=== PATIENT | male | born 1930 | race Caucasian/White ===

== ENCOUNTER 2020-06-06 16:48 | Emergency (ER) | payer MEDICARE, OTHER ==
[~2020-06-06] VITALS: Ht 170.2 cm; Wt 90.7 kg
[~2020-06-06 16:48] MED LIST: ASPIRIN325 M2; IRON; Z.0.COZAAR25 MG; Z.0.LEXAPRO10 MG; Z.0.LIPITOR20 MG; [UNRECOGNIZED DRUG - OTHER]
[2020-06-06 17:16] LABS: BASOPHILS % 0.6 % (0.0-1.0); EOSINOPHILS # (AUTO) 0.1 (0.0-0.4); EOSINOPHILS % 1.6 % (0.0-6.0); HEMATOCRIT 33.9 % (38.2-49.6); HEMOGLOBIN 11.3 g/dL (14.0-18.0); LYMPHOCYTES # (AUTO) 1.2 (1.0-3.2); LYMPHOCYTES % 24.4 % (18.0-39.1); MEAN CORPUSCULAR HEMOGLOBIN 33.2 pg (28-32); MEAN CORPUSCULAR HGB CONC 33.3 g/dL (31-35); MEAN CORPUSCULAR VOLUME 99.7 fL (81-99); MONOCYTES # (AUTO) 0.8 (0.2-0.8); MONOCYTES % 15.3 % (4.4-11.3); NEUTROPHILS # (AUTO) 2.9 (2.1-6.9); NEUTROPHILS % 57.9 % (38.7-80.0); PLATELET COUNT 145 x10e3/uL (140-360); RED CELL DISTRIBUTION WIDTH 12.9 % (11.7-14.4)
--- OUTSIDE RECORDS SUMMARY | 2020-06-06 17:22 | XMS REPORT | Clinical Summary ---
Author Author [id number] [id number] Address Unknown Phone Unavailable Care Team Providers Care Stoner Hand Name Role Phone Sergo Vidales MD PCP Unavailable Allergies Comments Active Allergy Reactions Severity Noted Date blisters Adhesive Other (See 08/18/2015 Comments) Sulfa (Sulfonamide Nausea Only 06/11/2008 Antibiotics) Stomach upset Bupropion Hcl Nausea Only, Low 12/26/2008 Other (See Comments) Medications End Date Status Medication Sig Dispensed Refills Start Date Active atorvastatin (LIPITOR) 10 Take 10 mg by 0 MG tablet mouth nightly. Active acyclovir (ZOVIRAX) 400 Take 400 mg 0 MG tablet by mouth 2 (two) times daily. Active escitalopram (LEXAPRO) 10 Take 10 mg by 0 MG tablet mouth daily. Active losartan (COZAAR) 100 MG Take 100 mg 0 tablet by mouth daily . Active omeprazole (PRILOSEC) 20 Take 20 mg by 0 MG capsule mouth daily. Active fluticasone (FLONASE) 50 2 sprays by 0 mcg/actuation nasal spray Nasal route daily. Active multivitamin Take 1 tablet 0 (MULTIVITAMIN) per tablet by mouth daily. Active prednisoLONE acetate Place 1 drop 0 (PRED FORTE) 1 % into the ophthalmic suspension right eye 2 (two) times daily. Active dorzolamide-timolol, PF, Apply 1 drop 0 2-0.5 % Dpet to eye(s) 2 (two) times daily. Active potassium chloride Take 10 mEq 0 (KLOR-CON) 10 MEQ CR by mouth tablet daily. Active furosemide (LASIX) 20 MG Take 20 mg by 0 tablet mouth 2 (two) times daily. Active warfarin (COUMADIN, Take 2 30 tablet 0 JANTOVEN) 2.5 MG tablet tablets (5 mg 0 total) by mouth daily Take 5 mg on and 2.5 mg on , , , [place].. 02/19/2020 Discontinued bromfenac (PROLENSA) 0.07 Apply 1 drop 0 % Drop to eye(s) 2 (two) times daily . 02/20/2020 Discontinued warfarin (COUMADIN) 2.5 Take 5 mg by 0 MG tablet mouth daily Take 5 mg on and 2.5 mg on , , , [place].. 02/19/[address] 1 drop 5 mL 0 01 (CILOXAN) 0.3 % into the 5 ophthalmic solution right eye 4 (four) times daily.. 02/19/2020 Discontinued homatropine (ISOPTO) 5 % Place 1 drop 15 mL 0 ophthalmic solution into the 5 right eye 4 (four) times daily. 02/19/2020 Discontinued cloNIDine HCl (CATAPRES) Take 1 tablet 15 tablet 0 0.2 MG tablet (0.2 mg 7 total) by mouth 3 (three) times daily as needed (TAKE IF SYSTOLIC>180 OR IF DIASTOLIC>100 ) for up to 15 doses. 02/25/2020 mINOCYCLine Take 1 10 capsule 0 (MINOCIN,DYNACIN) 100 MG capsule (100 0 capsule mg total) by mouth every 12 (twelve) hours for 5 days. Status Hospital, Clinic, or Ordered Dose Route Frequency Start End Date Other Facility Date Administered Medication Active chlorhexidine (HIBICLENS) Top Daily as needed external liquid 4% 20 Active Problems Problem Noted Date Symptomatic bradycardia 02/19/2020 S/P placement of cardiac pacemaker single chamber MDT MRI conditional, Left 02/19/2020 02/19/2020 Restless legs syndrome (RLS) 02/19/2020 Dizziness 02/06/2020 Major depressive disorder, single episode, moderate 11/08/2019 Pulmonary hypertension 06/01/2019 Gastroesophageal reflux disease with esophagitis Hypercholesterolemia 10/29/2016 Persistent atrial fibrillation 10/29/2016 SSS (sick sinus syndrome) 10/29/2016 TGA (transient global amnesia) 08/18/2016 Primary open angle glaucoma of both eyes, severe stag e 08/06/2016 Allergic rhinitis, unspecified 11/12/2015 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 03/10/2012 Overview: Overview: ICD-10 Neuritis or radiculitis due to displacement of lumbar intervertebral disc 09/30/2010 Lumbar spondylosis 08/31/2010 CAD (coronary artery disease) 07/24/2010 ELLEN (obstructive sleep apnea) 09/13/2008 Benign essential hypertension 06/11/2008 DDD (degenerative disc disease), cervical 06/11/2008 Encounters Care Team Description Date Type Specialty Venessa Garrison MD PACEMAKER GEN & LEADS - INSERTION W/ GEN ERAL ANESTHESIA (SING/DUAL/MULT) 02/19/2020 Surgery Yarelis Porter MD 02/19/2020 Anesthesia Event Venessa Garrison MD 02/19/2020 Hospital - Encounter 02/20/2020 Sergo Vidales MD Varghese, Jeeva S RN Pre-op exam (Primary Dx) 02/14/2020 Office Visit Cardiology 02/14/2020 Travel Jonny Serna MD Fall, initial encounter (Primary Dx); Injury of head, initial encounter 09/28/2019 Emergency Emergency Medicine 09/28/2019 Travel after 06/06/2019 Social History Date Tobacco Use Types Packs/Day Years Used Never Smoker Smokeless Tobacco: Never Used Alcohol Use Drinks/Week oz/Week Comments No 0.0 occasional wine Sex Assigned at Date Recorded Not on file Industry Job Start Date Occupation Not on file Not on file Not on file Travel End Travel History Travel Start No recent travel history available. Last Filed Vital Signs Time Taken Vital Sign Reading 02/20/2020 7:27 AM CDT Blood Pressure 121/70 02/20/2020 7:27 AM CDT Pulse 60 02/20/2020 7:27 AM CDT Temperature 36.8 C (98.2 F) 02/20/2020 7:27 AM CDT Respiratory Rate 18 02/20/2020 7:27 AM CDT Oxygen Saturation 94% - Inhaled Oxygen - Concentration 02/20/2020 9:54 AM CDT Weight 77.9 kg (171 lb 12.8 oz) 02/19/2020 6:02 AM CDT Height 167.6 cm (5' 6") 02/20/2020 9:54 AM CDT Body Mass Index 27.73 Plan of Treatment Health Maintenance Due Date Last Done Comments MEDICARE ANNUAL WELLNESS 10/18/1996 (YEAR 2 or FIRST YEAR if no IPPE) INFLUENZA VACCINE (#1) 2020 07/09/2019, , 07/05/2017, Additional history exists PNEUMOCOCCAL 65+ Completed 11/26/2014, 008 LOW/MEDIUM RISK Implants Device Identifier Shelf Expiration Date Model / Serial / L ot Implanted Type Area Manufactur er 04/15/2016 [id number] / / [id number] Sealant,Floseal Hemostatic Matrix Cement/Migel N/A: Spine AVENDAÑO 10ml - [id number] ler/Adhesi Lumbar BIOSCIENCE Implanted: Qty: 1 on 02/10/2015 by ve FOR Rehan Hernandez MD [facility] 01/27/2018 [id number] / / [id number] AlejandrinaLabtician Retinal #240 - Ophthalmol Right: Eye SENEGALESE [id number] ogy OPHTHALMIC Implanted: Qty: 1 on 09/28/2013 by Rock Narayanan MD 06/29/2014 [id number] / / [id number] Vial,Silicone Oil 10cc Siloil - Ophthalmol Right: Eye BAUSC [id number] ogy Implanted: Qty: 1 on 09/28/2013 by Rock Narayanan MD [id number] 12/05/2021 [id number] / [id number] / Lead Pacemkr Capsur Novus 52x1 PACEMAKER/ N/A: Heart [employer]: [id number] - [id number] ICD CARD Implanted: Qty: 1 on 02/19/2020 by CHAMBER RHY :Venessa Slaughter MD DEVICE E MGT [id number] 11/30/2020 [id number] / [id number] / Pacemaker Ipg [id number] [place] Sr PACEMAKER/ Left: Chest [employer]: [id number] - [id number] ICD CARD Implanted: Qty: 1 on 02/19/2020 by CHAMBER RHY :Venessa Slaughter MD DEVICE E MGT Procedures Comments Procedure Name Priority Date/Time Associated Diag nosis REPORT OF PROCEDURE - 02/22/2020 ENDOSCOPY SCAN 11:00 AM CDT CARDIAC CATH REPORT - 02/22/2020 SCAN 11:00 AM CDT ARRYTHMIA IMPLANT REPORT 02/22/2020 - SCAN 11:00 AM CDT RHYTHM STRIP - SCAN 02/22/2020 11:00 AM CDT ARRYTHMIA IMPLANT REPORT 02/20/2020 - SCAN 12:51 PM CDT BUN AND CREATININE Routine 02/20/2020 W/RATIO 4:00 AM CDT HEMOGLOBIN AND HEMATOCRIT Routine 02/20/2020 4:00 AM CDT XR CHEST 1 VIEW Routine 02/20/2020 PORTABLE/BEDSIDE 3:47 AM CDT XR CHEST 1 VIEW STAT 02/19/2020 PORTABLE/BEDSIDE 11:51 AM CDT PACEMAKER GEN & LEADS - 02/19/2020 Atrial fibril lation, INSERTION W/ GENERAL 7:35 AM CDT unspecified type (HCC) ANESTHESIA Symptomatic bradycardia (SING/DUAL/MULT) Case Notes (1)SAXY0FY P / [employer] Special Needs No anesthesia PROTHROMBIN TIME/INR Routine 02/19/2020 6:36 AM CDT PROTHROMBIN TIME/INR Routine 02/14/2020 12:08 PM CDT SARS-COV2/RT-PCR ([facility] & Routine 02/14/2020 REF LABS) 12:[address] BRAIN WITHOUT IV STAT 09/28/2019 CONTRAST 4:40 PM [employer] 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 * CARDIAC CATH REPORT - SCAN (02/22/2020 11:00 AM CDT) Narrative Performed At This result has an attachment that is n ot available. * ARRYTHMIA IMPLANT REPORT - SCAN (02/22/2020 11:00 AM CDT) Only the most recent of 2 results within the time period is included. Narrative Performed At This result has an attachment that is n ot available. * RHYTHM STRIP - SCAN (02/22/2020 11:00 AM CDT) Narrative Performed At This result has an attachment that is n ot available. * BUN and Creatinine (02/20/2020 4:00 AM CDT) BUN 17 7 - 21 mg/dL [facility] Creatinine 0.72 0.57 - 1.25 mg/dL [facility] BUN/Creatinine Ratio 23.6111Comment: For a normal [facility] individual on a normal diet, [facility] the reference interval for the mass ratio ranges between 12:1 and 20:1 (BUN in mg/dL/creatinine in mg/dL) EGFR 103Comment: ESTIMATED GFR IS mL/min/1.73 sq m [facility] NOT ACCURATE CREATININE [facility] CLEARANCE IN PREDICTING GLOMERULAR FILTRATION RATE. ESTIMATED GFR IS NOT APPLICABLE FOR DIALYSIS PATIENTS. Specimen Blood Narrative Performed At Web Sizer ID - SINDI M [facility] Specimen slightly icteric [facility] Performing Organization Address [facility] Ph one Number [place] [phone] [place] [address] * Hemoglobin and hematocrit (02/20/2020 4:00 AM CDT) Hemoglobin 12.8 (L) 13.7 - 17.5 GM/DL [facility] Hematocrit 37.5 (L) 40.1 - 51.0 % [facility] Specimen Blood Narrative Performed At Web Sizer ID - [id number] [facility] Performing Organization Address [facility] Ph one Number [address] [facility] * XR chest 1 view portable / bedside (02/20/2020 3:47 AM CDT) Only the most recent of 2 results within the time period is included. Specimen Narrative Performed At FINAL REPORT GE RIS RAD, CHEST, 1 VIEW, NON DEPT INDICATION: s/p PPM; rule out PTX COMPARISON: Prior day's exam FINDINGS: Portable frontal view of the chest. IMPRESSION: Support Lines: Stable. Lungs and pleura: Unchanged airspace an d pleural opacities. No pneumothorax. Heart and mediastinum: Stable contours. Stable surgical changes. Additional findings: None. Signed: Ronan Ramirez MD Report Verified Date/Time: 0 04:03:01 Procedure Note Interface, External Ris In - 02/20/2020 4:05 AM CDT FINAL REPORT RAD, CHEST, 1 VIEW, NON DEPT INDICATION: s/p PPM; rule out PTX COMPARISON: Prior day's exam FINDINGS: Portable frontal view of the chest. IMPRESSION: Support Lines: Stable. Lungs and pleura: Unchanged airspace and pleural opacities. No pneumothorax. Heart and mediastinum: Stable contours. Stable surgical changes. Additional findings: None. Signed: Ronan Ramirez MD Report Verified Date/Time: 02/20/2020 04:03:01 Performing Organization Address City/State/Zipcode Ph one Number RIS * Prothrombin time/INR (02/19/2020 6:36 AM CDT) Only the most recent of 2 results within the time period is included. Protime 16.3 (H) 11.9 - 14.2 seconds [facility] INR 1.4 <=5.9 [facility] Specimen Blood Narrative Performed At Effective 03/14/2019: PT Reference Range Change [facility] New: 11.9-14.2Previous: 11.7-14.7 [facility] NTER RECOMMENDED COUMADIN/WARFARIN INR THERA PY RANGES STANDARD DOSE: 2.0-3.0Includes: PRO PHYLAXIS for venous thrombosis, systemic embolization; TREATMENT for venous thro mbosis and/or pulmonary embolus. HIGH RISK: Target INR is 2.5-3.5 for pa tients wiht mechanical heart valves. Page Imelda for INR of 1.5 or greater7 [phone] Performing Organization Address City/State/Zipcode Ph one Number [place] [address] [facility] * SARS-CoV2/RT-PCR ([facility]) (02/14/2020 12:04 PM CDT) SARS-COV2/RT-PCR Negative Not Detected, Negative SLE NON-INTERFACED REFERENCE LABS SARS-COV-2 PERFORMING LAB CPL SLE NON-INT ERFACED REFERENCE LABS Specimen Other Performing Organization Address City/State/[facility] Ph one Number [facility] NON-INTERFACED REFERENCE LABS * CT brain without IV contrast (09/28/2019 4:40 PM [employer]ETE IRONWORKER) Specimen Narrative Performed At FINAL REPORT [employer] [facility] CT, BRAIN, WITHOUT CONTRAST INDICATION: Head trauma, minor, normal mental status (Age 19-64y) FALL TECHNIQUE: Noncontrast axial imaging wa s obtained from the vertex to the skull base. Axial images were recon structed using a bone algorithm. DOSE REDUCTION: Dose modulation, iterat bashir reconstruction, and/or weight-based adjustment of the mA/kV wa s utilized to reduce the radiation dose to as low as reasonably achievable. COMPARISON: CT 06/26/2017 FINDINGS: Intracranial: Generalized cerebral atro phy with ex vacuo dilatation of the ventricular system proportionate to sulci. Scattered foci of hypoattenuation within the periventricu lar and subcortical white matter are a nonspecific finding common ly attributed to chronic small vessel ischemic disease. No intracrania l hemorrhage or abnormal extra-axial collection. No evidence of acute territorial infarct. No mass effect. No hydrocephalus. Osseous structures: No fracture. No omari picious lesion. Paranasal sinuses and mastoid air cells : No evidence of sinusitis. Trace left mastoid effusion. Orbital contents: Globes are intact. IMPRESSION: No acute intracranial hemorrhage. If there is persistent clinical concern for intracranial pathology, MR examination is recommended for [facility] er characterization. Signed: Nakia Trinh MD Report Verified Date/Time: 9 17:01:52 Procedure Note Interface, External Ris In - 09/28/2019 5:04 PM [employer]E [employer]ONWORKER FINAL REPORT CT, BRAIN, WITHOUT CONTRAST INDICATION: Head trauma, minor, normal mental status (Age 19-64y) FALL TECHNIQUE: Noncontrast axial imaging was obtained from the vertex to the skull base. Axial images were reconstructed using a bone algorithm. DOSE REDUCTION: Dose modulation, iterative reconstruction, and/or weight-based adjustment of the mA/kV was utilized to reduce the radiation dose to as low as reasonably achievable. COMPARISON: CT 06/26/2017 FINDINGS: Intracranial: Generalized cerebral atrophy with ex vacuo dilatation of the ventricular system proportionate to sulci. Scattered foci of hypoattenuation within the periventricular and subcortical white matter are a nonspecific finding commonly attributed to chronic small vessel ischemic disease. No intracranial hemorrhage or abnormal extra-axial collection. No evidence of acute territorial infarct. No mass effect. No hydrocephalus. Osseous structures: No fracture. No suspicious lesion. Paranasal sinuses and mastoid air cells: No evidence of sinusitis. Trace left mastoid effusion. Orbital contents: Globes are intact. IMPRESSION: No acute intracranial hemorrhage. If there is persistent clinical concern for intracranial pathology, MR examination is recommended for further characterization. Signed: Nakia Trinh MD Report Verified Date/Time: 09/28/2019 17:01:52 Performing Organization Address City/State/Zipcode Ph one Number [place] [facility] after 06/06/2019 Insurance Payer Benefit Subscriber ID Type Phone Address Plan / Group K[employer]SEYCARE KELSEYCARE xxxxxxxxxxx MEDICARE ADV OTHER-COMMERCIAL GENERIC xxxxxxxxxxxx COMMERCIAL CDC REVIEW CDC REVIEW xxxxx[place] [address] [place] [phone] Advance Directives For more information, please contact: [facility] [address] [place] [address] Date Inactivated Comments Code Status Date Activated 02/20/2020 1:42 PM Full Code 02/19/2020 6:13 AM This code status was determined by: Patient 02/11/2015 12:21 PM Full Code 02/10/2015 7:12 PM This code status was determined by: Patient 02/10/2015 7:12 PM Full Code 02/10/2015 6:42 AM This code status was determined by: Patient 12/25/2014 1:43 PM Full Code 12/24/2014 3:46 PM This code status was determined by: Patient
--- OUTSIDE RECORDS SUMMARY | 2020-06-06 17:22 | XMS REPORT | Continuity of Care Document ---
Author Author [facility] t Organization [facility] Address [address] [place] [address] Phone Unavailable Care Team Providers Care Vocational Case Manager Name Role Phone Sobeida GAMBOA, Lawrence Trotter PCP Unavailable Meli GAMBOA, Venessa Attphys German GAMBOA, Anthony Santoyo Attphys VENESSA MOLINA Attphys Unavailable LAWRENCE VIDALES Attphys Unavailable Lawrence Vidales MD Attphys [phone] Abdoulaye EAST, S Royal Attphys Unavailable Daphne GAMBOA, Evangelist Fuller Attphys Tina PRICE Attphys Unavailable VENESSA MOLINA Admphys Unavailable Payers Payer Name Policy Type Policy Number Effective Date Expiration Date S doreen KELSEYCAREKELSEYCARE MEDICARE ADVxxxxxxxxxxx xxxxxxxxxxx [facility] OTHER-COMMERCIALGENERIC COMMERCIALxxxxxxxxxxxx xxxxxxxxxxx x [facility] CDC REVIEWCDC REVIEWxxxxxxxx[place] [address] x xxxxxxx [facility] Problems Condition Name Condition Details Condition Category Status Onset Date Resolution Date Last Treatment Date Treating Clinician Comments Source Symptomatic bradycardia Symptomatic bradycardia Disease Active 2020-02-19 00:00:[address] [facility] S/P placement of cardiac pacemaker singl e chamber MDT MRI conditional, Left 02/19/2020 S/P placement of cardiac pacemaker singl e chamber MDT MRI conditional, Left 02/19/2020 Disease Active 2020-02-19 00:00:[address] [facility] Restless legs syndrome (RLS) Restless legs syndrome (RLS) Disease Active 2020-02-19 00:00:00 [facility] Dizziness Dizziness Disease Active 2020-02-06 00:00:[address] [facility] Major depressive disorder, single episode, moderate [place] allison depressive disorder, single episode, moderate Disease Active 2019-11-08 00:00:[address] [facility] Pulmonary hypertension Pulmonary hypertension Disease Active 2019-06-01 00:00:[address] [facility] Gastroesophageal reflux disease with esophagitis Gastr oesophageal reflux disease with esophagitis Disease Active 2016-10-29 00:00:[address] [facility] Hypercholesterolemia Hypercholesterolemia Disease Active 00:00:00 [facility] Persistent atrial fibrillation Persistent atrial fibrillation Disea se Active 2016-10-29 00:00:00 [facility] SSS (sick sinus syndrome) SSS (sick sinus syndrome) Disease Ac tive 2016-10-29 00:00:[address] [facility] TGA (transient global amnesia) TGA (transient global amnesia) Disea se Active 2016-08-18 00:00:00 [facility] Primary open angle glaucoma of both eyes, severe stage Primary open angle glaucoma of both eyes, severe stage Disease Active 2016-08-06 00:00:[address] 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 Spinal stenosis, lumbar region, with neurogenic claudi cation Spinal stenosis, lumbar region, with neurogenic claudication Disease [facility] 2014 [facility] [place] Post-operative state Post-operative state Disease Active 00:00:00 [facility] Hematuria Hematuria Disease Active 2014-12-24 00:00:[address] [facility] Renal mass, right Renal mass, right Disease Active 2014-12-03 00:00:[address] 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 Glaucoma filtering bleb, right eye Glaucoma filtering bleb, righ t eye Disease Active 2013-03-02 00:00:00 Overview: Overvi ew: Dr. Brito [facility] Corneal dellen Corneal dellen Disease Active 2013-02-16 00:00:[address] [facility] Pseudophakia of both eyes Pseudophakia of both eyes Disease Ac tive 2012-10-20 00:00:[address] 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 Neuritis or radiculitis due to displacement of lumbar intervertebral disc Neuritis or radiculitis due to displacement of lumbar intervertebral disc Disease Active 2010-09-30 00:00:[address] [facility] Lumbar spondylosis Lumbar spondylosis Disease Active 2010-08-31 00:00:[address] [facility] CAD (coronary artery disease) CAD (coronary artery disease) Disease Active 2010-07-24 00:00:00 [facility] ELLEN (obstructive sleep apnea) ELLEN (obstructive sleep apnea) Disease Active 2008-09-13 00:00:00 [facility] Benign essential hypertension Benign essential hypertension Disease Active 2008-06-11 00:00:00 [facility] DDD (degenerative disc disease), cervical DDD (degener ative disc disease), cervical Disease Active 2008-06-11 00:00:[address] [facility] Allergies, Adverse Reactions, Alerts Allergy Name Allergy Type Status Severity Reaction(s) Onset Date Inacti ve Date Treating Clinician Comments Source Adhesive Drug Allergy Active Other (See Comments) 2015-08-18 00 :00:[address] [facility] Bupropion Hcl Propensity to adverse reactions Active Nausea Only, Other (See Comments) 2008-12-26 00:00:00 Stomach upset [facility] Sulfa (Sulfonamide Antibiotics) Propensity to adverse reactions Act bashir Nausea Only 2008-06-11 00:00:00 [facility] Social History Social Habit Start Date Stop Date Quantity Comments Source Sex Assigned At [facility] Alcohol Comment 2014-12-18 00:00:00 2014-12-18 00:00:00 occasional wi ne [facility] Smoking Status Start Date Stop Date Source Never smoker [facility] Medications Ordered Medication Name Filled Medication Name Start Date Stop Da te Current Medication? Ordering Clinician Indication Dosage Frequency Signature (SIG) Comments Components Source warfarin (COUMADIN, JANTOVEN) 2.5 MG tablet 2020-02-21 00:00:00 Yes 5mg QD Take 2 tablets (5 mg total) by mouth edelmira ly Take 5 mg on -- and 2.5 mg on , , Sa, [place].. [facility] warfarin (COUMADIN) 2.5 MG tablet 2020-02-20 10:37:29 2019 00:00:00 No 5mg QD Take 5 mg by kiana th daily Take 5 mg on -W- and 2.5 mg on , , Sa, [place].. [facility] mINOCYCLine (MINOCIN,DYNACIN) 100 MG capsule 202 00:00:00 2020-02-25 23:59:00 No 100mg Take 1 capsule (100 mg total) by mouth every 12 (twelve) hours for 5 days. [facility] potassium chloride (KLOR-CON) 10 MEQ CR tablet 2020-02-19 07:09: 44 Yes 10meq QD Take 10 mEq by mouth daily. [facility] furosemide (LASIX) 20 MG tablet 2020-02-19 07:09:44 Yes 20mg Q.5D Take 20 mg by mouth 2 (two) times daily. [facility] bromfenac (PROLENSA) 0.07 % Drop 2020-02-19 06:58:51 2020-02 00:00:00 No 1[drp] Q.5D Apply 1 drop to eye(s) 2 (two) times daily . [facility] losartan (COZAAR) 100 MG tablet 2020-02-14 12:25:43 Yes 100mg QD Take 100 mg by mouth daily . [facility] chlorhexidine (HIBICLENS) external liquid 4% 2020-02-14 11:46:27 Yes [facility] dorzolamide-timolol, PF, 2-0.5 % Dpet 2017-06-26 08:50:27 Yes 1[drp] Q.5D Apply 1 drop to eye(s) 2 (two) times daily. [facility] cloNIDine HCl (CATAPRES) 0.2 MG tablet 2017-06-17 0 00:00:00 2020-02-19 00:00:00 No .2mg Take 1 tablet (0.2 mg total) by mouth 3 (three) times daily as needed (TAKE IF SYSTOLIC>180 OR IF DIASTOLIC>100) for up to [address] [facility] ciprofloxacin HCl (CILOXAN) 0.3 % ophthalmic solution 2015-08-19 00:00:00 2020-02-19 00:00:[address] 1 drop into the right eye 4 (four) times daily.. [facility] homatropine (ISOPTO) 5 % ophthalmic solution 201 02-24-03 00:00:00 2020-02-19 00:00:00 No 1[drp] Q.25D Place 1 drop i nto the right eye 4 (four) times daily. [facility] atorvastatin (LIPITOR) 10 MG tablet 2014-12-18 14:17:36 Yes 10mg QD Take 10 mg by mouth nightly. [facility] acyclovir (ZOVIRAX) 400 MG tablet 2014-12-18 14:17:36 Yes 400mg Q.5D Take 400 mg by mouth 2 (two) times daily. [facility] fluticasone (FLONASE) 50 mcg/actuation nasal spray 2014-12 14:17:36 Yes 2{spray} QD 2 sprays by Nasal route daily. [facility] multivitamin (MULTIVITAMIN) per tablet 2014-12-18 14:17:36 Yes 1{tbl} QD Take 1 tablet by mouth daily. [facility] prednisoLONE acetate (PRED FORTE) 1 % ophthalmic suspension 2014-12-18 14:17:36 Yes 1[drp] Q.5D Place 1 [address] op into the right eye 2 (two) times daily. [facility] omeprazole (PRILOSEC) 20 MG capsule 2013-09-28 09:07:55 Yes 20mg QD Take 20 mg by mouth daily. [facility] escitalopram (LEXAPRO) 10 MG tablet 2013-09-28 09:07:54 Yes 10mg QD Take 10 mg by mouth daily. [facility] Vital Signs Vital Name Observation Time Observation Value Comments Source Body weight Measured 2020-02-20 09:54:00 [address] [facility] BMI 2020-02-20 09:54:00 27.73 kg/m2 [facility] Systolic blood pressure 2020-02-20 07:27:00 121 mm[Hg] [facility] Diastolic blood pressure 2020-02-20 07:27:00 70 mm[Hg] [facility] Heart rate 2020-02-20 07:27:00 60 /min [facility] Body temperature 2020-02-20 07:27:[address] [facility] Respiratory rate 2020-02-20 07:27:00 18 /min [facility] Oxygen saturation in Arterial blood by Pulse oximetry 02-19 07:27:00 94 /[facility] height 2020-02-19 06:02:00 167.6 cm [facility] Procedures Procedure Date / Time Performed Performing Clinician [facility] e REPORT OF PROCEDURE - ENDOSCOPY SCAN 2020-02-22 11:00:45 Pro vider, Default Scanning [facility] CARDIAC CATH REPORT - SCAN 2020-02-22 11:00:44 Provider, Default Scanning [facility] ARRYTHMIA IMPLANT REPORT - SCAN 2020-02-22 11:00:42 Provider, De fault Scanning [facility] RHYTHM STRIP - SCAN 2020-02-22 11:00:36 Provider, Default Scanni cesar [facility] ARRYTHMIA IMPLANT REPORT - SCAN 2020-02-20 12:51:36 Provider, De fault Scanning [facility] HEMOGLOBIN AND HEMATOCRIT 2020-02-20 04:00:00 Imelda Mckee [facility] BUN AND CREATININE W/RATIO 2020-02-20 04:00:00 Imelda Mckee [facility] XR CHEST 1 VIEW PORTABLE/BEDSIDE 2020-02-20 03:47:00 Imelda Mckee [facility] XR CHEST 1 VIEW PORTABLE/BEDSIDE 2020-02-19 11:51:00 Imelda Mckee [facility] PACEMAKER GEN & LEADS - INSERTION W/ GENERAL ANESTHESI A (SING/DUAL/MULT) 2020-02-19 07:35:00 [facility]ina [facility]/INR 2020-02-19 06:36:00 Imelda Mckee Leela [facility] PROTHROMBIN TIME/INR 2020-02-14 12:08:00 Imelda Mckee [facility] SARS-COV2/RT-PCR ([facility]) 2020-02-14 12:04:00 Kaya Mckee Leela [facility] CT BRAIN WITHOUT IV CONTRAST 2019-09-28 16:40:00 Jonny Serna Ba [facility] Plan of Care Planned Activity Planned Date Details Comments Source Future Scheduled Test 2020-06-17 00:00:00 INFLUENZA VACCINE (#1) [code = INFLUENZA VACCINE (#1)] [facility] Future Scheduled Test 1996-10-18 00:00:00 MEDICARE ANNUAL WE LLNESS (YEAR 2 or FIRST YEAR if no IPPE) [code = MEDICARE ANNUAL WELLNESS (YEAR 2 or FIRST YEAR if no IPPE)] [facility] Results Test Description Test Time Test Comments Results Result Comments Source BUN and Creatinine 2020-02-20 04:23:00 Test Item BUN (test code = 3094-0) 17 mg/dL 7-21 Creatinine (test code = 2160-0) 0.72 mg/dL 0.57-1.25 BUN/Creatinine Ratio (test code = 3097-3) 23.6111 For a normal individual on a normal diet, the reference interval for the mass ratio ranges between 12:1 and 20:1 (BUN in mg/dL/creatinine in mg/dL) EGFR (test code = 27840-2) 103 mL/min/1.73 sq m ESTIMATED GFR IS NOT ACCURATE CREATININE CLEARANCE IN PREDICTING GLOMERULAR FILTRATION RATE. ESTIMATED GFR IS NOT APPLICABLE FOR DIALYSIS PATIENTS. MONIKA (test code = MONIKA) Soil Chemist ID - SINDI MSpecimen slightly icteric [facility] W/[id number] 04:23:00* Test Item Value Reference Range Interpretation Comments BLOOD UREA NITROGEN (BEAKER) (test code = 354) 17 mg/dL 7-21 CREATININE (BEAKER) (test code = 358) 0.72 mg/dL 0.57-1.25 BUN/CREATININE RATIO (BEAKER) (test code = 1800) 23.6111 For a normal individual on a normal diet, the reference interval for the mass ratio ranges between 12:1 and 20:1 (BUN in mg/dL/creatinine in mg/dL) EGFR (BEAKER) (test code = 1092) 103 mL/min/1.73 sq m ESTIMATED GFR IS NOT ACCURATE CREATININE CLEARANCE IN PREDICTING GLOMERULAR FILTRATION RATE. ESTIMATED GFR IS NOT APPLICABLE FOR DIALYSIS PATIENTS. Soil Chemist ID - SINDI MSpecimen slightly ictericHemoglobin and [id number] 04:08:00* Test Item Value Reference Range Interpretation Comments Hemoglobin (test code = 786-4) 12.8 13.7- 17.5 GM/DL L Hematocrit (test code = 4544-3) 37.5 % 40.1-51 L MONIKA (test code = MONIKA) Soil Chemist ID - [id number] Lab Interpretation (test code = 61015-9) [facility]normal [facility]MO[facility] AND [id number] 04:08:00* Test Item Value Reference Range Interpretation Comments HEMOGLOBIN (BEAKER) (test code = 410) 12.8 GM/DL 13.7-17.5 L HEMATOCRIT (BEAKER) (test code = 411) 37.5 % 40.1-51.0 L Soil Chemist ID - [id number], CHEST, 1 VIEW, NON [id number] 04:03:00Remove telemetry wires prior to performing xrayReason for exam:->s/p PPM; rule out PTXShould this be performed at the bedside?->YesFINAL REPORT RAD, CHEST, 1 VIEW, NON DEPT INDICATION: s/p PPM; rule out PTX COMPARISON: Prior day's exam FINDINGS: Portable frontal view of the chest. IMPRESSION: Support Lines: Stable. Lungs and pleura: Unchanged airspace and pleural opacities. No pneumothorax.Heart and mediastinum: Stable contours. Stable surgical changes.Additional findings: None. Signed: Ronan Ramirez Verified Date/Time: 02/20/2020 04:03:01 chest 1 view portable / [id number] 04:03:00Interface, External Ris In - 02/20/2020 4:05 AM CDTFINAL REPORT RAD, CHEST, 1 VIEW, NON DEPT INDICATION: s/p PPM; rule out PTX COMPARISON: Prior day's exam FINDINGS: Portable frontal view of the chest. IMPRESSION: Support Lines: Stable. Lungs and pleura: Unchanged airspace and pleural opacities. No pneumothorax.Heart and mediastinum: Stable contours. Stable surgical changes.Additional findings: None. Signed: Ronan Ramirez Verified Date/Time: 02/20/2020 04:03:[address] [facility] [facility] [address] [facility], 1 VIEW, NON [id number] 12:25:00Remove telemetry wires prior to performing xrayReason for exam:->s/p PPM; rule out PTXShould this be performed at the bedside?->YesFINAL REPORT INDICATION: s/p PPM; rule out PTX COMPARISON: None TECHNIQUE: Single frontal view of the chest. FINDINGS: Lungs and pleura: Clear lungs. No effusion.Heart and mediastinum: Normal heart size. Unremarkable mediastinal contours.Osseous structures: No acute abnormality.Other: Pacer device. IMPRESSION: No pneumothorax status post pacer placement Signed: Contreras Okeefe MDRepjessica Verified Date/Time: 02/19/2020 12:25:52 Reading Location: [facility] Radiology Reading Room Prothrombin time/[id number] 06:49:00* Test Item Value Reference Range Interpretation Comments Protime (test code = 5902-2) 16.3 11.9- 14.2 seconds H INR (test code = 6301-6) 1.4 <=5.9 MONIKA (test code = MONIKA) Effective 03/14/2019: PT Refe rence Range ChangeNew: 11.9- 14.2 Previous: 11.7-14.7 RECOMMENDED COUMADIN/WARFARIN INR THERAPY RANGESSTANDARD DOSE: 2.0-3.0 Includes: PROPHYLAXIS for venous thrombosis, sys temic embolization; TREATMENT for venous thrombosis and/or pulmonary embolus.HIGH RISK: Target INR is 2.5-3.5 for patients wiht mechanical heart valves. Page Imelda for INR of 1.5 or greater [phone] Lab Interpretation (test code = 58864-2) [facility]normal [facility]/[id number] 06:49:00* Test Item Value Reference Range Interpretation Comments PROTIME (BEAKER) (test code = 759) 16.3 seconds 11.9-14.2 H INR (BEAKER) (test code = 370) 1.4 <=5.9 Effective 03/14/2019: PT Reference Range ChangeNew: 11.9-14.2 Previous: 11.7-14. 7RECOMMENDED COUMADIN/WARFARIN INR THERAPY RANGESSTANDARD DOSE: 2.0-3.0 Include s: PROPHYLAXIS for venous thrombosis, systemic embolization; TREATMENT for venou s thrombosis and/or pulmonary embolus.HIGH RISK: Target INR is 2.5-3.5 for patie nts wiht mechanical heart valves.Page Imelda for INR of 1.5 or greater [phone] 8SARS-CoV2/RT-PCR ([facility])2020-02-15 10:14:00* Test Item Value Reference Range Interpretation Comments SARS-COV2/RT-PCR (test code = 23153-8) Negative Not Detected, N egative SARS-COV-2 PERFORMING LAB (test code = 02157-5) [facility])2020-02-15 10:14:00* Test Item Value Reference Range Interpretation Comments SARS-COV2/RT-PCR (test code = 4828075) Negative Not Detected, N egative SARS-COV-2 PERFORMING LAB (test code = 8333698) [facility] PROTHROMBIN TIME/[id number] 12:38:00* Test Item Value Reference Range Interpretation Comments PROTIME (BEAKER) (test code = 759) 26.0 seconds 11.9-14.2 H INR (BEAKER) (test code = 370) 2.5 <=5.9 Effective 03/14/2019: PT Reference Range ChangeNew: 11.9-14.2 Previous: 11.7-14. 7RECOMMENDED COUMADIN/WARFARIN INR THERAPY RANGESSTANDARD DOSE: 2.0-3.0 Include s: PROPHYLAXIS for venous thrombosis, systemic embolization; TREATMENT for venou s thrombosis and/or pulmonary embolus.HIGH RISK: Target INR is 2.5-3.5 for patie nts wiht mechanical heart valves.Page Imelda for INR of 1.5 or greater. [phone], BRAIN, WITHOUT [id number] 17:01:00Reason for exam:->FALLWhat is the patient's sedation requirement?->No SedationFINAL REPORT CT, BRAIN, WITHOUT CONTRAST INDICATION: Head trauma, minor, normal mental status (Age 19-64y)FALL TECHNIQUE: Noncontrast axial imaging was obtained from [...] and subcortical white matter are a nonspecific fin ding commonly attributed to chronic small vessel ischemic disease. No intracrani al hemorrhage or abnormal extra-axial collection. No evidence of acute territori al infarct. No mass effect. No hydrocephalus. Osseous structures: No fracture. N o suspicious lesion. Paranasal sinuses and mastoid air cells: No evidence of sin usitis. Trace left mastoid effusion. Orbital contents: Globes are intact. IMPRES SIDDHARTHA: No acute intracranial hemorrhage. If there is persistent clinical concern for intracranial pathology, MR examination is recommended for further characteri zation. Signed: Nakia Trinh MDReport Verified Date/Time: 09/28/2019 17:01:52 brain without IV [id number] 17:01:00Interface, External Ris In - 09/28/2019 5:[address], BRAIN, WITHOUT CONTRAST INDICATION: Head trauma, minor, normal mental status (Age 19-64y)FALL TECHNIQUE: Noncontrast axial imaging was obtained from the vertex to the skull base. Axial images were reconstructed using a bone algorithm. DOSE REDUCTION: Dose modulation, iterative reconstruction, and/or weight-based adjustment of the mA/kV was utilized to reduce the radiation dose to as low as reasonably achievable. COMPARISON: CT 06/26/2017 FINDINGS: Intracranial: Generalized cerebral atrophy with ex vacuo dilatation of the ventricular system pro portionate to sulci. Scattered foci of hypoattenuation within the periventricula r and subcortical white matter are a nonspecific finding commonly attributed to chronic small vessel ischemic disease. No intracranial hemorrhage or abnormal ex tra-axial collection. No evidence of acute territorial infarct. No mass effect. No hydrocephalus. Osseous structures: No fracture. No suspicious lesion. Paranas al sinuses and mastoid air cells: No evidence of sinusitis. Trace left mastoid e ffusion. Orbital contents: Globes are intact. IMPRESSION: No acute intracranial hemorrhage. If there is persistent clinical concern for intracranial pathology, MR examination is recommended for further characterization. Signed: Claire Trinh MDReport Verified Date/Time: 09/28/2019 17:01:[address] [facility] URINALYSIS W/ [id number] 10:32:00* Test Item Value Reference Range Interpretation Comments COLOR (BEAKER) (test code = 470) Light Yellow CLARITY (BEAKER) (test code = 469) Clear SPECIFIC GRAVITY UA (BEAKER) (test code = 468) 1.012 1.001-1 .035 PH UA (BEAKER) (test code = 467) 7.5 5.0-8.0 PROTEIN UA (BEAKER) (test code = 464) 10 mg/dL Negative A GLUCOSE UA (BEAKER) (test code = 365) Negative Negative KETONES UA (BEAKER) (test code = 371) Negative Negative BILIRUBIN UA (BEAKER) (test code = 462) Negative Negative BLOOD UA (BEAKER) (test code = 461) Negative Negative NITRITE UA (BEAKER) (test code = 465) Negative Negative LEUKOCYTE ESTERASE UA (BEAKER) (test code = 466) Negative Negat bashir UROBILINOGEN UA (BEAKER) (test code = 463) 0.2 mg/dL 0.2-1.0 RBC UA (BEAKER) (test code = 519) 0 /HPF WBC UA (BEAKER) (test code = 520) 0 /HPF MUCUS (BEAKER) (test code = 1574) Rare HYALINE CASTS (BEAKER) (test code = 514) 2 /LPF SOURCE(BEAKER) (test code = 2795) Urine, Clean Catch CT, BRAIN, WITHOUT [id number] 10:15:00Reason for exam:->DIZZINESSfor 2 hoursReason for exam:->HEADACHEReason for exam:->HYPERTENSIONWhat is the patient's sedation requirement?->No SedationFINAL REPORT CT Head without contrast CLINICAL HISTORY: DIZZINESSHEADACHE Episode of Care: Initial TECHNIQUE: Contiguous axial images through the head without contrast. This exam was performed according to the departmental dose optimization program which includes automated exposure control, adjustment of the mA and/or kV according to the patient size, and/or use of an iterative reconstruction technique. COMPARISON: 12/13/2010 FINDINGS: There is no CT evidence of acute infarct or intracranial hemorrhage. There is periventricular and subcortical white matter hypodensity which is nonspecific but compatible with chronic microvascular ischemic change. There are atherosclerotic calcifications of the intracranial circulation. There is generalized parenchymal volume loss without hydrocephalus, midline shift, or apparent mass effect. There are no extra-axial fluid collections. The skull is intact. The visualized paranasal sinuses are well-aerated. IMPRESSION: No CT evidence of acute infarct, hemorrhage, or hydr ocephalus. Signed: Rosita Barraganeport Verified Date/Time: 06/26/2017 10:15: 01 Reading Location: [address] Neuro Reading Room HROMBIN TIME/[id number] 10:11:00* Test Item Value Reference Range Interpretation Comments PROTIME (BEAKER) (test code = 759) 22.7 seconds 11.7-14.7 H INR (BEAKER) (test code = 370) 2.0 <=5.9 RECOMMENDED COUMADIN/WARFARIN INR THERAPY RANGESSTANDARD DOSE: 2.0 - 3.0 Inclu grecia: PROPHYLAXIS for venous thrombosis, systemic embolization; TREATMENT for reji ous thrombosis and/or pulmonary embolus.HIGH RISK: Target INR is 2.5-3.5 for pat ients with mechanical heart valves.CREATINE KINASE (CK), TOTAL AND [id number] 10:08:00* Test Item Value Reference Range Interpretation Comments CREATINE KINASE TOTAL (BEAKER) (test code = 380) 123 U/L 29-20 0 CREATINE KINASE-MB (BEAKER) (test code = 750) 2.5 ng/mL 0.0-6.6 CREATINE KINASE-MB INDEX (BEAKER) (test code = 395) 2.0 % CK-MB Reference Range:<6.7 Normal6.7-10.0 Borderline>10.0 Abnormal TROPONIN [id number] 10:08:00* Test Item Value Reference Range Interpretation Comments TROPONIN I (BEAKER) (test code = 397) 0.01 ng/mL 0.00-0.03 Troponin I (TnI) levels must be interpreted in the context of the presenting sym ptoms and the clinical findings. Elevated TnI levels indicate myocardial damage, but are not specific for ischemic heart disease. Elevated TnI levels are seen in patients with other cardiac conditions (including myocarditis and congestive h eart failure), and slight TnI elevations occur in patients with other conditions , including sepsis, renal failure, acidosis, acute neurological disease, and per sistent tachyarrhythmia.B-TYPE NATRIURETIC FACTOR (BNP)2017-06-26 10:07:00* Test Item Value Reference Range Interpretation Comments B-TYPE NATRIURETIC PEPTIDE (BEAKER) (test code = 700) 169 pg/mL 0-100 H BASIC METABOLIC [id number] 10:01:00* Test Item Value Reference Range Interpretation Comments SODIUM (BEAKER) (test code = 381) 141 meq/L 136-145 POTASSIUM (BEAKER) (test code = 379) 3.8 meq/L 3.5-5.1 CHLORIDE (BEAKER) (test code = 382) 106 meq/L 98-107 CO2 (BEAKER) (test code = 355) 29 meq/L 22-29 BLOOD UREA NITROGEN (BEAKER) (test code = 354) 17 mg/dL 7-21 CREATININE (BEAKER) (test code = 358) 0.83 mg/dL 0.57-1.25 GLUCOSE RANDOM (BEAKER) (test code = 652) 106 mg/dL 70-105 H CALCIUM (BEAKER) (test code = 697) 9.0 mg/dL 8.4-10.2 EGFR (BEAKER) (test code = 1092) 88 mL/min/1.73 sq m ESTIMATED GFR IS NOT ACCURATE CREATININE CLEARANCE IN PREDICTING GLOMERULAR FILTRATION RATE. ESTIMATED GFR IS NOT APPLICABLE FOR DIALYSIS PATIENTS. RAD, CHEST, 1 VIEW, NON [id number] 09:39:00Reason for exam:->DIZZINESSfor 2 hoursReason for exam:->HEADACHEReason for exam:->HYPERTENSIONShould this be performed at the bedside?->YesFINAL REPORT Chest, one view. HISTORY: Hypertension COMPARISON: Chest x-ray from 03/07/2012 DISCUSSION: Mild interstitial edema. Unchanged enlargement of cardiomediastinal silhouette. Trace left pleural effusion. No identifiable pneumothorax. No focal consolidation. Degenerative changes in the shoulders. No acute osseous abnormalities. Median sternotomy wires. IMPRESSION: Mild interstitial edema and unchanged enlargement of the cardiomediastinal silhouette. Trace left pleural effusion. Signed: Santiago Lee MDReport Verified Date/Time: 06/26/2017 09:39:35 Reading Location: [facility] C013X Ortho Consult Reading Room W/PLT COUNT & AUTO [id number] 09:25:00* Test Item Value Reference Range Interpretation Comments WHITE BLOOD CELL COUNT (BEAKER) (test code = 775) 5.0 K/ L 3.5- 10.5 RED BLOOD CELL COUNT (BEAKER) (test code = 761) 4.04 M/ L 4.63-6 .08 L HEMOGLOBIN (BEAKER) (test code = 410) 12.8 GM/DL 13.7-17.5 L HEMATOCRIT (BEAKER) (test code = 411) 38.9 % 40.1-51.0 L MEAN CORPUSCULAR VOLUME (BEAKER) (test code = 753) 96.3 fL 79. 0-92.2 H MEAN CORPUSCULAR HEMOGLOBIN (BEAKER) (test code = 751) 31.7 pg 25.7-32.2 MEAN CORPUSCULAR HEMOGLOBIN CONC (BEAKER) (test code = 752) 32.9 GM/DL 32.3-36.5 RED CELL DISTRIBUTION WIDTH (BEAKER) (test code = 412) 13.2 % 11.6-14.4 PLATELET COUNT (BEAKER) (test code = 756) 149 K/CU MM 150-450 L MEAN PLATELET VOLUME (BEAKER) (test code = 754) 10.5 fL 9.4-12 .4 NUCLEATED RED BLOOD CELLS (BEAKER) (test code = 413) 0 /100 WBC 0 -0 NEUTROPHILS RELATIVE PERCENT (BEAKER) (test code = 429) 66 % LYMPHOCYTES RELATIVE PERCENT (BEAKER) (test code = 430) 18 % MONOCYTES RELATIVE PERCENT (BEAKER) (test code = 431) 11 % EOSINOPHILS RELATIVE PERCENT (BEAKER) (test code = 432) 4 % BASOPHILS RELATIVE PERCENT (BEAKER) (test code = 437) 1 % NEUTROPHILS ABSOLUTE COUNT (BEAKER) (test code = 670) 3.31 K/ L 1.78-5.38 LYMPHOCYTES ABSOLUTE COUNT (BEAKER) (test code = 414) 0.89 K/ L 1.32-3.57 L MONOCYTES ABSOLUTE COUNT (BEAKER) (test code = 415) 0.57 K/ L 0. 30-0.82 EOSINOPHILS ABSOLUTE COUNT (BEAKER) (test code = 416) 0.22 K/ L 0.04-0.54 BASOPHILS ABSOLUTE COUNT (BEAKER) (test code = 417) 0.03 K/ L 0. 01-0.08 IMMATURE GRANULOCYTES-RELATIVE PERCENT (BEAKER) (test code = 2801) 0 % 0-1
[2020-06-06 17:30] LABS: INR 2.51; PROTHROMBIN TIME 28.8 seconds (11.9-14.5)
[2020-06-06 17:31] LABS: PARTIAL THROMBOPLASTIN TIME 37.9 seconds (23.8-35.5)
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
== END 2020-06-06 19:50 | disposition home or self-care (01) ==
LOC: ER 17:10
DX: S00.01XA Abrasion of scalp, initial encounter (principal); S51.012A Laceration without foreign body of left elbow, initial encounter; W17.89XA Other fall from one level to another, initial encounter; Y92.008 Other place in unspecified non-institutional (private) residence as the place of occurrence of the external cause; I10 Essential (primary) hypertension; Z79.01 Long term (current) use of anticoagulants
CPT/HCPCS: 36415; 70450; 72125; 85025; 85610; 85730; 99283